=== PATIENT | male | born 1955 | race Caucasian/White ===

== ENCOUNTER 2019-07-10 14:39 | Observation (INO) | payer OTHER ==
--- NOTE | 2019-07-10 15:37 | CT ---
CT Brain WO Con: 07/10/2019 3:15 PM CLINICAL HISTORY: TIA. COMPARISON: None. FINDINGS: Hemorrhage: None. Ventricular system: Normal in size and morphology for the patient's age. Cerebral parenchyma: Normal Midline shift: None. Mass: No mass effect. Calvarium: Normal. Visualized Paranasal sinuses: Clear. IMPRESSION: No acute intracranial abnormalities.
[2019-07-10 15:38] LABS: #Basophils 0.1 thou/uL (0.0-0.2); #Eosinphils 0.2 thou/uL (0.0-0.7); #Lymphocytes 2.4 thou/uL (1.20-3.40); #Monocytes 0.6 thou/uL (0.11-0.59); #Neutrophils 8.7 thou/uL (1.40-6.50); %Basophils 0.8 % (0.0-1.0); %Eosinophils 2.1 % (0.0-10.0); %Lymphocytes 19.9 % (21.0-51.0); %Monocytes 5.2 % (0.0-10.0); Hemoglobin 14.2 g/dL (14.0-18.0); Mean Corpuscular HGB CONC 34.7 g/dL (32.0-36.0); Mean Corpuscular Hemoglobin 33.5 pg (27.0-31.0); Mean Corpuscular Volume 96.5 fL (78.0-98.0); Mean Platelet Volume 7.7 fL (7.4-10.4); Platelet Count 255 thou/uL (130-400); RBC Distribution Width 11.6 % (11.5-14.5); Red Blood Cell (RBC) Count 4.23 mill/uL (4.70-6.10)
[2019-07-10 15:44] LABS: PTT 31.7 SEC (22.9-36.1); Prothrombin Time 13.2 SEC (12.0-14.7)
[2019-07-10] MEDS ORDERED: Aspirin Chewable 81 MG TAB ONE (15:48)
[2019-07-10 16:00] LABS: ALT (SGPT) 13 U/L (8-55); AST (SGOT) 20 U/L (5-34); Albumin 4.2 g/dL (3.4-4.8); Alkaline Phosphatase 51 U/L (40-110); Anion Gap 14 mmol/L (10-20); BUN (Urea Nitrogen) 16 mg/dL (8.4-25.7); Bilirubin, Total 0.5 mg/dL (0.2-1.2); CK (CPK) 145 U/L (30-200); Calc. Creatinine Clearance 0 mL/min (70-130); Calcium 8.9 mg/dL (7.8-10.44); Carbon Dioxide 20 mmol/L (23-31); Chloride 102 mmol/L (98-107); Estimated GFR-MDRD 83; Globulin 2.7 g/dL (2.4-3.5); Glucose 86 mg/dL (80-115); Potassium 4.1 mmol/L (3.5-5.1); Protein, Total 6.9 g/dL (5.8-8.1); Sodium 132 mmol/L (136-145)
[2019-07-10] MEDS ORDERED: Senokot S 8.6-50 MG TAB PO PRN (18:22)
[2019-07-10] MEDS ORDERED: Acetaminophen 325 MG TAB PO PRN (18:22)
[2019-07-10] MEDS ORDERED: HYDROcodone/Acetaminophen 5/325 mg Tablet PO PRN (18:22)
[2019-07-10] MEDS ORDERED: Famotidine 20 MG TAB PO SCH (21:00)
--- NOTE | 2019-07-10 21:22 | HP ---
PRIMARY CARE PHYSICIAN: In [place]. CHIEF COMPLAINT: Weakness. HISTORY OF PRESENT ILLNESS: Mr. Hurst is a 64-year-old man, who reported to the emergency room via EMS after he felt profoundly weak for about 40 to 45 minutes. This morning reports that he felt bad enough after 30 minute that concerned him and he called 911. The patient states he had mild difficulty processing and speaking his words to the slip bridge operator. Reports about 3 minutes before EMS , which he reports [place] about 15 [place] He felt immediately better. He states that he took two aspirin during the onset of feeling weak and by the time he got to the emergency room his symptoms had resolved and he is only tired currently. The patient states he has been eating and drinking normally. The patient denied any chest pain or chest tightness. The patient states this is the first episode of symptoms he has had in over a year. The patient reports family medical history of heart attack and lung cancer. The patient denies any cardiac disease, although he said he was worked up for a TIA for similar symptoms about a year and a half ago. The patient reports that he was seen in the emergency room about 6 years ago for atrial fibrillation. Reports he was in RVR and his heart rate gone up in the 160s. They gave him some medication and it resolved and he reports that he has not had it since, although he does state that he gets. He does not feel palpitations, but he does get episodes where he is more tired than normal. Reports that he has not seen a local coordinator at least 6 years. He reports he does vape and drinks alcohol daily. Reports that it varies from 2 to 6 to 8 beers a day. EKG in the emergency room shows a normal sinus rhythm, beats per minute 72. ST segment T-waves were normal. White blood cell count 12, hemoglobin 14.2, hematocrit 40.8, and platelet count 255. Coagulation studies were within normal limits. Chemistry; sodium 132, potassium 4.1, carbon dioxide 20. First troponin undetectable. Rest of labs were unremarkable. The patient was planning to be admitted to stroke unit for further TIA workup. REVIEW OF SYSTEMS: Reports weakness. Denies chills or fever. Reports dysarthria. Denies palpitations. Denies chest pain. All other systems are reviewed and negative unless mentioned in the HPI. PAST MEDICAL HISTORY: Reports TIA 10 years ago. Had an episode of atrial fibrillation and RVR, resolved. Reports he has not had it since. After talking to him does report that he may have some symptoms on and off for the last 10 years. SOCIAL HISTORY: Drinks every day more than 5 drinks per day. Has had tobacco vapes and has smoked for more than 30 years. FAMILY HISTORY: Pertinent for cardiac disease and cancer. KNOWN ALLERGIES: Tamiflu. CURRENT MEDICATIONS: None. PHYSICAL EXAMINATION: VITAL SIGNS: Blood pressure 134/88, pulse is 69, respirations are 15, temperature is 98.2, pO2 sats are 98% on room air. CONSTITUTIONAL: The patient appears pain free. He is alert and oriented to person, place, and time, is in no apparent distress. HEENT: Head is atraumatic and normocephalic. Eyes, pupils equal, round, and reactive to light. Eyelids are normal to inspection. ENT; mucous membranes are moist. Trachea is midline. NECK: Normal range of motion. RESPIRATORY: Chest, breath sounds are clear. Chest expansion is equal. CARDIOVASCULAR: Regular heart rate and rhythm. Heart tones are normal. ABDOMEN: Nontender. Bowel sounds are heard. BACK: Normal inspection. Normal range of motion. No CVA tenderness. EXTREMITIES: Upper extremity; normal inspection. Normal range of motion. Radial pulses normal. Lower extremity; inspection is normal. Normal range of motion. Pedal pulses are equal. No edema is noted. NEURO: The patient is oriented to person, place, and time. Speech is normal. No focal motor or sensory deficits were noted. SKIN: Warm, dry, normal in color. PSYCH: The patient is oriented to person, place, and time. Normal affect. The patient had a brain CT which was negative for any acute findings. PLAN AND ASSESSMENT: 1. Possible transient ischemic attack. Echocardiogram, brain MRI without contrast, carotid Dopplers will be ordered. PT/OT assessment. Lipids and TSH. 2. Depending on what the echocardiogram results, may consider Cardiology either as an inpatient or an outpatient for potential monitor if nothing is captured while the patient is an inpatient. This was discussed at length with the patient and he agrees with assessment. 3. Deep venous thrombosis and gastrointestinal prophylaxis have been started. 4. Hospital course dependent on clinical findings. Job ID: [id number]
[2019-07-11] MEDS ORDERED: Enoxaparin Sodium 40 MG/0.4 ML SYRINGE SC SCH (09:00)
--- NOTE | 2019-07-12 08:24 | DIS ---
DATE OF ADMISSION: 07/10/2019 DATE OF DISCHARGE: 07/10/2019 AMA NOTE: The patient decided to leave AMA. ER nurse called this provider to tell him that the patient was growing wary of staying in the ER, was upset that there were no beds, was in the hold status and decided that he wanted to go home. The patient signed AMA paperwork, and the patient left AMA. Job ID: [id number]
== END 2019-07-10 20:02 | disposition left against medical advice (07) ==
LOC: ERS 14:39 → ERHOLD 17:04 → 2SW 22:30 → ERHOLD 22:42
PROVIDERS: ADMIT Internal Medicine; ATTEND Internal Medicine
DX: R53.1 Weakness (principal); F17.290 Nicotine dependence, other tobacco product, uncomplicated; Z86.73 Personal history of transient ischemic attack (TIA), and cerebral infarction without residual deficits; Z88.8 Allergy status to other drugs, medicaments and biological substances
CPT/HCPCS: 36415; 70450; 80053; 82550; 84484; 85025; 85610; 85730; 93005